=== PATIENT | female | born 1985 | race Asian ===

== ENCOUNTER 2024-08-09 10:01 | Day surgery (SDC) | payer OTHER, SELFPAY ==
[2024-08-09] VITALS (23 sets, daily range): BP systolic 90–107; BP diastolic 54–70; PULSE 71–119; RESP 12–16; TEMP 36.4–37.4; O2SAT 97–100; BMI 18.6
--- OUTSIDE RECORDS SUMMARY | 2024-08-09 10:04 | XMS_ITS | Clinical Summary ---
Author Organization [employer] [facility] Address [address] [place] [id number] Care Team Providers Care Palliative Care Physician Name Role Phone Pcp, No Primary Care Provider Unavailabl e Allergies No known active allergies Medications No known medications Active Problems No known active problems Family History Medical History Relation Name Comments No Known Problems Son 1 No Known Problems Son 2 Relation Name Status Comments Son 1 Alive Son 2 Alive Social History Tobacco Use Types Packs/Day Years Used Date Smoking Tobacco: Never Smokeless Tobacco: Never Comments No Sex and Gender Information Value Date Recorded Sex Assigned at Not on file Legal Sex Female 4:21 PM CDT Gender Identity Not on file Sexual Orientation Not on file Obstetrics History Last Filed Vital Signs Vital Sign Reading Time Taken Comments Blood Pressure 96/55 10/10/2021 6:06 PM CDT Pulse 73 10/10/2021 6:06 PM CDT Temperature 37.1 C (98.7 F) 10/10/2021 6:06 PM CDT Respiratory Rate 16 10/10/2021 6:06 PM CDT Oxygen Saturation 99% 10/10/2021 6:06 PM CDT Inhaled Oxygen Concentration - - Weight 43.1 kg (95 lb) 10/10/2021 6:06 PM CDT Height 167.6 cm (5' 6) 10/10/2021 6:06 PM CDT Body Mass Index 15.33 10/10/2021 6:06 PM CDT Plan of Treatment Health Maintenance Due Date Last Done Comments Tdap 1994 Depression screening for age 12+ 1995 HIV for age 15-65 1998 BMI (ht and wt on same day) for age 18+ 2001 Hepatitis C screening for ag e 18-79 2001 Tetanus booster 2003 Pap test for age 21-65 01/25/2004 COVID-19 vaccine series ( season) 2023 04/14/2021 Influenza Vaccine (Season Ended) 2024 Pneumococcal series for age 6-49 Aged Out No longer eligible based on patient's age to complete this topic Care Teams Palliative Care Physician Relationship Specialty Start Date End Date Pcp, No . PCP - General 10/10/21
--- NOTE | 2024-08-09 10:29 | ED.GENADULT ---
HPI - General Adult General Chief complaint: Vaginal Bleeding Stated complaint: Blood pressure issues, got sent from [facility] Time Seen by Provider: 08/09/24 10:05 History of Present Illness HPI narrative: This 39-year-old female comes in reporting heavy vaginal bleeding over the past several days. She presented to urgent care where they noted that her hemoglobin was 6.2. She denies possibility of being . She is [place] and does understand some Sammarinese. She does not report any long-term bleeding. She did have a syncopal event and continues to have some lightheadedness symptoms. She does not report any pain. Related Data Home Medications ?Medication ?Instructions ?Recorded ?Confirmed No Known Home Medications 08/09/24 08/09/24 Allergies Allergy/AdvReac Type Severity Reaction Status Date / Time No Known Drug Allergies Allergy Verified 08/09/24 10:11 Review of Systems Status of ROS: Reports: 10 or more systems reviewed and unremarkable except as noted in History and below Narrative: Constitutional: No fevers, no weight gain or loss. She has lightheadedness and did have a syncopal event. Eyes: No discharge. No vision changes. HENT: No congestion, no sore throat, no ear pain. Cardiovascular: No chest pain, no palpitations. Respiratory: No shortness of breath, no wheezes, no cough. Gastrointestinal: No abdominal pain, no vomiting, no diarrhea. Genitourinary: No dysuria, no hematuria. Heavy vaginal bleeding. Musculoskeletal: Normal range of motion. Skin: No rashes, no pruritis. Neurological: No weakness, sensory change, speech change. Endo/Heme/Allergies: No bruising or bleeding. No polydipsia. Pysch: no suicidality, no anxiety, no insomnia. All other systems reviewed and are negative. [facility] Social History Smoking Status: Unknown if ever smoked Exam Narrative: Exam Narrative: Constitutional: Well-developed, well-nourished, no acute distress. HEENT: Normocephalic, atraumatic. Neck: Normal range of motion. Nontender. Supple. Heart: Regular. No murmurs. Tachycardia. Intact distal pulses. Lungs: Clear to auscultation. No chest discomfort. No wheezes, rhonchi, or rales. Abdomen: Normal bowel sounds. Nontender. No rebound tenderness. Genitalia: Deferred. Back: No midline tenderness. Normal range of motion. Extremities: Normal range of motion. No injury. Skin: Intact. No rash. Warm. No erythema or pallor. Neurologic: No altered sensation. No weakness. Alert and oriented. Psychiatric: No suicidality. No anxiety or depression. No insomnia. Nursing notes and vitals signs are reviewed. Const: Vital Signs, click to edit/add: Vital Signs - 24 hr 08/09/24 10:13 Temperature 98.4 F Pulse Rate [Pulse Oximeter] 110 H Respiratory Rate 16 Blood Pressure [Ri t Upper Arm] 104/54 L Pulse Oximetry 99 Oxygen Delivery Me thod Room Air Course Vital Signs Vital signs: Initial Vital Signs Temperature 98.4 F 08/09/24 10:13 Temperature Source Temporal Artery Scan 08/09/24 10:13 Pulse Rate 110 H 08/09/24 10:13 Pulse Rhythm Regular 08/09/24 10:13 Pulse Strength 3+ Normal 08/09/24 10:13 Respiratory Rate 16 08/09/24 10:13 Blood Pressure 104/54 L 08/09/24 10:13 Blood Pressure Mean 70 08/09/24 10:13 Blood Pressure Position Sitting 08/09/24 10:13 Pulse Oximetry 99 08/09/24 10:13 Oxygen Delivery Method Room Air 08/09/24 10:13 Vital Signs Temperature 98.4 F 08/09/24 10:13 Pulse Rate 110 H 08/09/24 10:13 Respiratory Rate 16 08/09/24 10:13 Blood Pressure 104/54 L 08/09/24 10:13 Pulse Oximetry 99 08/09/24 10:13 Oxygen Delivery Method Room Air 08/09/24 10:13 Temperature 98.4 F 08/09/24 10:13 Pulse Rate 110 H 08/09/24 10:13 Respiratory Rate 16 08/09/24 10:13 Blood Pressure 104/54 L 08/09/24 10:13 Pulse Oximetry 99 08/09/24 10:13 Oxygen Delivery Method Room Air 08/09/24 10:13 Medical Decision Making MDM Narrative Medical decision making narrative: This patient comes in reporting some heavy vaginal bleeding over the past several days. At urgent care her hemoglobin was at 6.2 and after arrival here her hemoglobin was recorded at 5.8. Her mean cell volume is in normal range so this does appear to be more of an acute bleed. She does have some tachycardia but is maintaining sufficient blood pressure. An IV was established and I did order 2 units of packed red blood cells and contacted the OB physician on-call. Dr. Alonso has come to evaluate the patient and is making plans for a D&C. Lab Data Labs: Lab Results 08/09/24 Range/Units 10:37 WBC 6.97 (4.50-11.00) K/uL RBC 2.01 L (4.00-5.20) m/uL Hgb 5.8 L* (12.0-16.0) gm/dL Hct 17.7 L (33.0-51.0) % MCV 88 (80-100) fL MCH 29 (26-34) pg MCHC 33 (32-36) gm/dL RDW Coeff of Jessie 12.7 (11.5-15.5) % Plt Count 218 (140-440) K/uL Neut % (Auto) 75.1 H (42.0-72.0) % Lymph % (Auto) 16.8 L (20-44) % Mcdonald % (Auto) 6.6 (0.0-11.0) % Eos % (Auto) 0.7 (0.0-7.0) % Baso % (Auto) 0.7 (0.0-3.0) % Neut # (Auto) 5.20 (1.7-7.0) K/uL Lymph # (Auto) 1.20 (0.90-2.90) K/uL Mcdonald # (Auto) 0.50 (0.00-0.90) K/UL Eos # (Auto) 0.05 (0.00-0.50) K/uL Baso # (Auto) 0.05 (0.00-0.30) K/uL Abs Immat Gran (auto) 0.01 (0.00-0.30) K/uL Imm/Tot Granulo (auto) 0.1 % HCG, Qual Negative (Negative) Blood Type O Positive Antibody Screen NEGATIVE Crossmatch (AHG) See Detail Discharge Plan Discharge Clinical Impression: Dysfunctional uterine bleeding, Anemia Patient Disposition: XFER to OR Condition: Unchanged Prescriptions: No Action No Known Home Medications Follow Up/Referrals: Provider,Not a Local [Primary Care Provider] -
[2024-08-09 10:49] LABS: Basophils Absolute Auto 0.05 K/uL (0.00-0.30); Basophils Percent Auto 0.7 % (0.0-3.0); Eosinophils Absolute Auto 0.05 K/uL (0.00-0.50); Eosinophils Percent Auto 0.7 % (0.0-7.0); Hematocrit 17.7 % (33.0-51.0); Immature Granulocytes Abs Auto 0.01 K/uL (0.00-0.30); Immature Granulocytes Pct Auto 0.1 %; Lymphocytes Percent Auto 16.8 % (20-44); Mean Corpuscular HGB Conc 33 gm/dL (32-36); Mean Corpuscular Hemoglobin 29 pg (26-34); Mean Corpuscular Volume 88 fL (80-100); Monocytes Percent Auto 6.6 % (0.0-11.0); Neutrophils Percent Auto 75.1 % (42.0-72.0); Platelet Count* 218 K/uL (140-440); RDW Coefficient of Variation % 12.7 % (11.5-15.5); Red Blood Count 2.01 m/uL (4.00-5.20); White Blood Count* 6.97 K/uL (4.50-11.00)
[2024-08-09 10:55] LABS: Hemoglobin* 5.8 gm/dL (12.0-16.0); Slide Review Reflex No
--- OUTSIDE RECORDS SUMMARY | 2024-08-09 10:55 | XMS_ITS | Clinical Summary ---
Author Organization [employer] [facility] Address [address] [place] [id number] Care Team Providers Care Signing Teacher Name Role Phone Pcp, No Primary Care [...] age to complete this topic Care Teams Signing Teacher Relationship Specialty Start Date End Date Pcp, No . PCP - General 10/10/21
[2024-08-09 11:11] LABS: HCG Qualitative Serum* Negative (Negative)
[2024-08-09] MEDS: LACTATED RINGERS 1000 ML 1,000 ML 100 ML IV (11:35)
--- NOTE | 2024-08-09 12:39 | P.GYNPRC_ITS ---
Procedure Note Date of procedure: 08/09/24 Will [facility] bill your pro fee for this procedure?: Yes Pre-op diagnosis: Active vaginal bleeding, symptomatic anemia Post-op diagnosis: Same, bleeding cervical mass Procedure: Pelvic exam under anesthesia, cervical biopsy Anesthesia: GETA Complications: None Surgeon: Zora Heredia MD Estimated blood loss (mL): 30 IV fluids (mL): 500 Urine Output (mL): 400 Pathology: specimen obtained, sent to pathology Condition: other Disposition: observation Findings: Bimanual exam: Uterus of about 15cm, irregular in contour, cervix palpates hard and irregular. Speculum exam: cervix is a irregular mass that looks verrucous and not able to identify a cervical os. Bleeding from multiple sites that are friable. There seems to be involvement of the left parametrium. Procedure Description: Patient was taken to the OR were general anesthesia was administered without difficulty. She was placed in the dorsal lithotomy position with Bud type stirrups. An exam under anesthesia as described above. Patient was then prepared and draped in the normal sterile fashion. A bivalved speculum was inserted in the posterior aspect of the vagina. Findings as above. Friable tissue just noted to be scrapped off with manipulation and this is sent to pathology. High suspicion for malignancy and decision was made to pack and prepare for transfer to higher level of care. One Surgicel place over lesion and 2 vaginal [address] left in place. Titus catheter was inserted for continued drainage. I did give her 2 g of Ancef and 1 g of TXA at the start of procedure. While at the OR blood transfusions started and so far she has received 2 units of PRBCs. Will plan to evaluate coagulation parameters to determine additional needs, will prepare for transfer to higher level of care.
--- NOTE | 2024-08-09 12:47 | SUR.OPER ---
PATIENT LEFT THE OPERATING ROOM WITH TWO (2) VAGINAL PACKS IN PLACE. THIS SUBSTITUTE CROSSING GUARD INFORMED THE .NET ARCHITECT (MARIE Carter) OF THIS INFORMATION.
--- NOTE | 2024-08-09 12:49 | P.ANES_ITS ---
Anesthesia Charges Start Date/Time Anesthesia Start Date: 08/09/24 Anesthesia Start Time: 11:55 Stop Date/Time Anesthesia Stop Date: 08/09/24 Anesthesia Stop Time: 12:43 Summary Emergency: AIR GUN OPERATOR Coding CPT Codes CPT Codes: ANESTH VAGINAL PROCEDURES - 33030 ([id number]) P1 - NORMAL HEALTHY PATIENT, QZ - AIR GUN OPERATOR SVC W/O THERMAL SPRAY OPERATOR BY Additional Codes: Summary - Emergency: AIR GUN OPERATOR ([id number])
--- NOTE | 2024-08-09 12:49 | W.ANESCHARGE ---
Anesthesia Charges Start Date/Time Anesthesia Start Date: 08/09/24 Anesthesia Start Time: 11:55 Stop Date/Time Anesthesia Stop Date: 08/09/24 Anesthesia Stop Time: 12:43 Summary Emergency: TOE FORMER Coding CPT Codes CPT Codes: ANESTH VAGINAL PROCEDURES - 35045 ([id number]) P1 - NORMAL HEALTHY PATIENT, QZ - TOE FORMER SVC W/O SIX SIGMA PROJECT MANAGER BY Additional Codes: Summary - Emergency: TOE FORMER ([id number])
[2024-08-09 12:52] LABS: Basophils Absolute Auto 0.06 K/uL (0.00-0.30); Basophils Percent Auto 0.8 % (0.0-3.0); Eosinophils Absolute Auto 0.11 K/uL (0.00-0.50); Eosinophils Percent Auto 1.6 % (0.0-7.0); Hematocrit 23.1 % (33.0-51.0); Immature Granulocytes Abs Auto 0.01 K/uL (0.00-0.30); Immature Granulocytes Pct Auto 0.1 %; Lymphocytes Absolute Auto 1.53 K/uL (0.90-2.90); Lymphocytes Percent Auto 21.7 % (20-44); Mean Corpuscular HGB Conc 31 gm/dL (32-36); Mean Corpuscular Hemoglobin 29 pg (26-34); Mean Corpuscular Volume 92 fL (80-100); Monocytes Percent Auto 5.8 % (0.0-11.0); Neutrophils Absolute Auto 4.94 K/uL (1.7-7.0); Platelet Count* 191 K/uL (140-440); RDW Coefficient of Variation % 13.6 % (11.5-15.5); White Blood Count* 7.06 K/uL (4.50-11.00)
[2024-08-09] MEDS: 0.9 % SODIUM CHLORIDE 500 ML 250 ML IV (12:54)
[2024-08-09 12:57] LABS: Hemoglobin* 7.2 gm/dL (12.0-16.0); Slide Review Reflex No
--- NOTE | 2024-08-09 12:57 | PM.GYNCN1 ---
MEDICAL RECORDS SPECIALIST - CN: HPI Data of Consult Date Seen: 08/09/24 Requesting Physician: Criss Driscoll MD Primary Care Provider: Not a Local Provider Consult Narrative Reason for consult: vaginal bleeding Narrative: Umm Macias is a 39 year old female that presents first to urgent care and was sent to [place] ED due to severe vaginal bleeding and hemoglobin of 6mg/dL. Patient states that she started bleeding heavily on Tuesday. States that bleeding was so heavy she had to changer pads every 30 minutes. States that she would bleed heavy for a couple of hours and then if would stop for a while on and off. Today, states that she started to feel lightheaded and decided to come in for evaluation. Patient has not seen a doctor in 10 years. States that she does not suffer from chronic medical conditions, no allergies, no past surgical history. She has been twice and she delivered her babies vaginally. States that she had a intrauterine device placed 10 years ago in [place], does not know what type it was. States that this is the first time she has experienced bleeding like this, but that before this episode she would experience menses every month that would be described by patient as normal. No history of abnormal pap smears, STDs per patient. cc:: CC: Criss Driscoll MD Review of Systems Status of ROS: Reports: 10 or more systems reviewed and unremarkable except as noted in History and below [facility] Social History Smoking Status: Unknown if ever smoked Meds Home Medications and Allergies Home Medications ?Medication ?Instructions ?Recorded ?Confirmed ?Type No Known Home Medications 08/09/24 08/09/24 History Allergies Allergy/AdvReac Type Severity Reaction Status Date / Time No Known Drug Allergies Allergy Verified 08/09/24 10:11 MEDICAL RECORDS SPECIALIST - Exam Physical Exam: Vital signs: Temp Pulse Resp BP Pulse Ox O2 Del Method 98 F 86 12 98/63 100 Room Air 08/09/24 12:40 08/09/24 12:55 08/09/24 12:55 08/09/24 12:55 08/09/24 12:55 08/09/24 12:40 Narrative: Speculum exam performed at ED: Very difficult to assess due to bleeding obscuring visualization, ongoing active bleeding noted even after attempts to clean with multiple cotton swabs and recommendation was given for further evaluation under anesthesia at the OR, possible D&C. MEDICAL RECORDS SPECIALIST - Results Labs Labs: Short CBC 08/09/24 Range/Units 10:37 WBC 6.97 (4.50-11.00) K/uL Hgb 5.8 L* (12.0-16.0) gm/dL Hct 17.7 L (33.0-51.0) % Plt Count 218 (140-440) K/uL Assessment and Plan Assessment and plan (1) Anemia: Status: Acute (2) Dysfunctional uterine bleeding: Status: Acute Plan Vaginal bleeding of uncertain etiology unable to complete exam at ED and active bleeding noted. Recommendation was already given to ED to start blood product transfusions. Recommend proceeding with pelvic exam under anesthesia possible D&C. Informed consent reviewed with patient, will proceed to OR emergently.
[2024-08-09 13:10] LABS: Albumin* 2.8 g/dL (3.3-5.0); Chloride* 108 mmol/L (96-114); Potassium* 3.5 mmol/L (3.6-5.1); Sodium* 138 mmol/L (135-149)
[2024-08-09 13:13] LABS: Alanine Aminotransferase* 13 U/L (4-35); Alkaline Phosphatase* 59 U/L (40-150); Anion Gap 8 mEq/L (7-15); Aspartate Amino Transferase* 22 U/L (12-35); Bilirubin Total* 0.2 mg/dL (0.1-1.5); Blood Urea Nitrogen* 9 mg/dL (5-24); Calcium* 7.3 mg/dL (8.4-10.6); Carbon Dioxide* 22 mmol/L (20-32); Creatinine* 0.5 mg/dL (0.5-1.5); Est. Creatinine Clearance* 100.73; Estimated Glomerular Filt Rate 121 ml/min; Glucose* 105 mg/dL (60-115); Total Protein* 5.5 g/dL (6.0-8.3)
[2024-08-09 13:17] LABS: INR 1.06 (0.91-1.10); Partial Thromboplastin Time* 31 Seconds (23-33); Prothrombin Time 14.7 Seconds
[2024-08-09 13:18] LABS: Fibrinogen* 313 mg/dL (200-450)
[2024-08-09] MEDS: LACTATED RINGERS 1000 ML 1,000 ML 40 ML IV (15:00)
[2024-08-09 15:54] LABS: Hemoglobin* 8.9 gm/dL (12.0-16.0)
--- NOTE | 2024-08-09 16:09 | PC.NURSE ---
Nurse to Nurse report given to Nyla at [facility].
--- NOTE | 2024-08-09 17:58 | PC.NURSE ---
Transfer/Discharge: Patient pleasant and cooperative. Patient vitally stable, lungs clear, BS WNL, IV running LR at 40ml. Patient denies pain as in NPO. Patient self and intact, empting 950ml. Patient with small amount of sersanguinos vaginal bleeding on christiano pad. Patient left the floor by EMS to [place] [facility] [id number]. Patient signed belongings sheet and discharge form.
== END 2024-08-09 17:55 | disposition home or self-care (01) ==
LOC: ED 11:35 → SS 11:52 → MEDSURG 11:57
PROVIDERS: Emergency Provider Emergency Medicine Emergency Medical Services; Visit Provider Obstetrics & Gynecology
PROC: (CPT 57500; principal; 2024-08-09 12:00)
DX: N93.8 Other specified abnormal uterine and vaginal bleeding (principal); C53.9 Malignant neoplasm of cervix uteri, unspecified; D62 Acute posthemorrhagic anemia; R42 Dizziness and giddiness
CPT/HCPCS: 57500; 00940; 36415; 80053; 84703; 85018; 85025; 85384; 85610; 85730; 86850; 86900; 86901; 86922; 88305; 88342; 99140; 99284; 99285; J0330; J1100; J2371; J2405; J2704; J3010; J7030; J7120; P9016

== ENCOUNTER 2024-08-09 17:40 | Outpatient (CLI) | payer OTHER, SELFPAY | END 2024-08-09 17:41 | disposition home or self-care (01) | LOC: AMB 08-10 10:13 | PROVIDERS: Visit Provider Student in an Organized Health Care Education/Training Program | DX: N93.9 Abnormal uterine and vaginal bleeding, unspecified (principal); R42 Dizziness and giddiness | CPT/HCPCS: A0425; A0427 ==

== ENCOUNTER 2025-01-28 09:11 | Outpatient (CLI) | payer OTHER, SELFPAY ==
--- NOTE | 2025-01-28 09:15 | CRLHL7_ITS ---
For Patients: As a result of the Century Cures Act, medical imaging exams and procedure reports are released immediately into your electronic medical record. You may view this report before your referring provider. If you have questions, please contact your health care provider. ULTRASOUND-GUIDED LEFT BREAST CYST ASPIRATION x2 CLINICAL HISTORY: Painful cysts. COMPARISON STUDIES: 01/02/2025. TECHNIQUE: Real-time ultrasound with image documentation was used for targeting the breast lesions. An 18-gauge needle was used to access the cysts. CONSENT and TIME OUT: The procedure, risks, and alternatives were explained to the patient, and a consent was signed. [place] Protocol was followed including pre-procedure verification that relevant information/documentation was available, reviewed and properly matched to the patient; consent accurate and complete; and equipment and supplies available. Time Out was conducted just prior to starting procedure to verify the four required elements: patient identity, correct side/site marked (if applicable), procedure, relevant images/results properly labeled and displayed (if applicable). PROCEDURE: The patient was positioned supine on the ultrasound table. Each aspiration was performed in similar fashion. The breast was prepped with ChloraPrep. 4 cc of 1 percent lidocaine used for local anesthesia. Ultrasound-guided aspiration performed of each cyst. Fluid was discarded. No complications. LATERALITY: LEFT breast. LESIONS: 1.6 x 1.0 x 1.4 cm cyst LEFT breast 10 o`clock 1 cm from the nipple and 1.8 x 1.1 x 1.6 cm cyst 3 o`clock 3 cm from the nipple LEFT breast. Both cysts aspirated, 1 cc each, and no residual cyst remains. IMPRESSION: Ultrasound-guided cyst aspiration x2 LEFT breast. ACR not applicable Dictated by Kulwant Back MD @ 01/28/2025 10:42:50 AM jj/Dictated by: Kulwant Back MD @ 01/28/2025 10:44:00 AM (Electronically Signed)
--- NOTE | 2025-01-28 09:15 | CRLHL7_ITS ---
For Patients: As a result of the Century Cures Act, medical imaging exams and procedure reports are released immediately into your electronic medical record. You may view this report before your referring provider. If you have questions, please contact your health care provider. ULTRASOUND-GUIDED RIGHT BREAST CYST ASPIRATION CLINICAL HISTORY: Painful cyst. COMPARISON STUDIES: 01/02/2025. TECHNIQUE: Real-time ultrasound with image documentation was used for targeting the breast lesion. An 18-gauge needle was used to access the cyst. CONSENT and TIME OUT: The procedure, risks, and alternatives were explained to the patient, and a consent was signed. [place] Protocol was followed including pre-procedure verification that relevant information/documentation was available, reviewed and properly matched to the patient; consent accurate and complete; and equipment and supplies available. Time Out was conducted just prior to starting procedure to verify the four required elements: patient identity, correct side/site marked (if applicable), procedure, relevant images/results properly labeled and displayed (if applicable). PROCEDURE: The patient was positioned supine on the ultrasound table. The breast was prepped with ChloraPrep. 2 cc of 1 percent lidocaine used for local anesthesia. Ultrasound-guided aspiration performed. Fluid was discarded. No complications. LATERALITY: RIGHT breast. LESIONS: Simple circumscribed RIGHT breast cyst measures 3.3 x 1.7 x 3.0 cm in the retroareolar tissue, 9 o`clock. 8 cc of fluid aspirated and discarded. No residual cyst remained. IMPRESSION: Ultrasound-guided cyst aspiration RIGHT breast. ACR not applicable Dictated by Kulwant Back MD @ 01/28/2025 10:44:26 AM (Electronically Signed)
== END 2025-01-28 09:12 | disposition home or self-care (01) ==
LOC: US 09:16
PROVIDERS: Visit Provider Surgery
DX: N60.01 Solitary cyst of right breast (principal); N60.02 Solitary cyst of left breast
CPT/HCPCS: 19000; 19001; 76942